=== PATIENT | female | born 1955 | race Caucasian/White ===

== ENCOUNTER → 2020-04-25 | Outpatient (CLI) | payer MEDICARE ==
[~2020-04-25] MED LIST: REGADENOSON 0.4 MG/5 ML SYRINGE ONE
== END | disposition home or self-care (01) ==
LOC: CFH 12:48
PROVIDERS: ATTEND Internal Medicine Cardiovascular Disease
DX: Z01.810 Encounter for preprocedural cardiovascular examination (principal); I10 Essential (primary) hypertension; I48.0 Paroxysmal atrial fibrillation
CPT/HCPCS: 78452; 93017; A9502; J2785

== ENCOUNTER → 2020-05-17 | Outpatient (CLI) | payer MEDICARE | END | disposition home or self-care (01) | LOC: CVU 15:30 | PROVIDERS: ATTEND Internal Medicine Cardiovascular Disease | DX: Z01.810 Encounter for preprocedural cardiovascular examination (principal); I08.8 Other rheumatic multiple valve diseases; I48.0 Paroxysmal atrial fibrillation; I11.9 Hypertensive heart disease without heart failure | CPT/HCPCS: 93306; 93356 ==

== ENCOUNTER → 2020-05-19 | Outpatient (CLI) | payer MEDICARE | END | disposition home or self-care (01) | LOC: CFH 08:40 | PROVIDERS: ATTEND Internal Medicine Gastroenterology | DX: M85.88 Other specified disorders of bone density and structure, other site (principal); K50.913 Crohn's disease, unspecified, with fistula | CPT/HCPCS: 77080 ==

== ENCOUNTER → 2020-06-01 | Outpatient (CLI) | payer MEDICARE ==
[~2020-06-01] MED LIST changes: +GADOTERATE 10 MMOL/20 ML SYR ONE; +GLUCAGON 1 MG ONE; -REGADENOSON 0.4 MG/5 ML SYRINGE ONE
== END | disposition home or self-care (01) ==
LOC: CFH 06:47
PROVIDERS: ATTEND Internal Medicine Gastroenterology
DX: K50.913 Crohn's disease, unspecified, with fistula (principal); M85.80 Other specified disorders of bone density and structure, unspecified site
CPT/HCPCS: 72197; 74183; A9575; J1610

== ENCOUNTER → 2020-06-14 | Outpatient (CLI) | payer MEDICARE ==
[~2020-06-14] MED LIST changes: +AZAT50TA9 PO; +DABI150C PO; -GADOTERATE 10 MMOL/20 ML SYR ONE; +GLIP10TA13 PO; -GLUCAGON 1 MG ONE; +HYDR-3341 PO; +INSU100V5 SQ-INSULIN; +METR500T PO; +OXYC-302 PO; +SIMV40TA20 PO; +SITA100T PO
== END | disposition home or self-care (01) ==
LOC: OUT 12:51
PROVIDERS: ATTEND Family Medicine
DX: Z20.828 Contact with and (suspected) exposure to other viral communicable diseases (principal)
CPT/HCPCS: 87635

== ENCOUNTER 2020-06-15 11:32 | Day surgery (SDC) | payer MEDICARE ==
[~2020-06-15] VITALS: Ht 160 cm; Wt 71.1 kg
[~2020-06-15 11:32] MED LIST changes: -AZAT50TA9 PO; +BUPIVACAINE/EPI 0.5% 1:200K ONE; -DABI150C PO; -GLIP10TA13 PO; -HYDR-3341 PO; -INSU100V5 SQ-INSULIN; -METR500T PO; -OXYC-302 PO; -SIMV40TA20 PO; -SITA100T PO
[2020-06-15] MEDS ORDERED: LACTATED RINGERS 1,000 ML IV SCH (12:00)
[2020-06-15] MEDS ORDERED: CHLORHEXIDINE 15 ML UDC MM ONE (12:00)
[2020-06-15 12:04] VITALS: BP 138/83
[2020-06-15 12:20] LABS: BASOPHILS % (AUTO) 1 % (0-1); EOSINOPHILS % (AUTO) 1 % (1-7); LYMPHOCYTES % (AUTO) 15 % (22-44); MEAN CORPUSCULAR HEMOGLOBIN 32.9 pg (27.0-34.8); MEAN CORPUSCULAR HGB CONC 34.3 g/dL (32.4-35.8); MEAN PLATELET VOLUME 8.1 fL (7.4-10.4); MONOCYTES % (AUTO) 8 % (2-9); NEUTROPHILS % (AUTO) 74 % (42-75); PLATELET COUNT 459 x10^3/uL (130-400); RED BLOOD COUNT 3.74 x10^6/uL (3.82-5.3); RED CELL DISTRIBUTION WIDTH 12.3 % (9.6-15.2)
[2020-06-15 12:24] LABS: MD NO
[2020-06-15] MEDS ORDERED: GLIP10TA13 PO (12:28)
[2020-06-15] MEDS ORDERED: AZAT50TA9 PO (12:28)
[2020-06-15 12:32] LABS: ALANINE AMINOTRANSFERASE 12 U/L (12-78); ALBUMIN 2.8 g/dL (3.4-5.0); ANION GAP 8 mmol/L (5-15); CALCIUM 9.4 mg/dL (8.5-10.1); CHLORIDE 109 mmol/L (98-107)
[2020-06-15] MEDS ORDERED: HYDR-3341 PO (12:32)
[2020-06-15] MEDS ORDERED: INSU100V5 SQ-INSULIN (12:32)
[2020-06-15] MEDS ORDERED: SIMV40TA20 PO (12:32)
[2020-06-15] MEDS ORDERED: DABI150C PO (12:32)
[2020-06-15] MEDS ORDERED: SITA100T PO (12:33)
[2020-06-15 12:34] LABS: ALKALINE PHOSPHATASE 89 U/L (45-117); BILIRUBIN,TOTAL 0.3 mg/dL (0.2-1.0); TOTAL PROTEIN 7.4 g/dL (6.4-8.2)
[2020-06-15] MEDS ORDERED: BUPIVACAINE LIPOSOME/PF 10ML INFIL ONE (13:07)
[2020-06-15] MEDS ORDERED: FENTANYL PF 250 MCG/5ML ONE (13:24)
[2020-06-15] MEDS ORDERED: MIDAZOLAM 1 MG/ML, 2ML ONE (13:24)
[2020-06-15] MEDS ORDERED: PROPOFOL 10 MG/ML, 20ML ONE (13:30)
[2020-06-15] MEDS ORDERED: ONDANSETRON 2MG/ML, 2ML ONE (13:33)
[2020-06-15] MEDS ORDERED: CEFOTETAN 2 GM ONE (13:33)
[2020-06-15] MEDS ORDERED: OXYC1TAB14 PO (13:59)
[2020-06-15] MEDS ORDERED: METR500T PO (13:59)
[2020-06-15] MEDS ORDERED: FENTANYL PF 100 MCG/2ML ONE (14:16)
[2020-06-15] MEDS ORDERED: OXYcodone 5 MG/5 ML ORAL.SOL UDC ONE (14:16)
[2020-06-15] MEDS: FENTANYL PF 100 MCG/2ML IV PRN ×3 (14:17→14:32)
[2020-06-15] MEDS ORDERED: LABETALOL 5MG/ML, 20ML IV PRN (14:30)
[2020-06-15] MEDS ORDERED: PROMETHAZINE 25 MG/ML, 1ML IVPush PRN (14:30)
[2020-06-15] MEDS ORDERED: ONDANSETRON 2MG/ML, 2ML IVPush PRN (14:30)
[2020-06-15] MEDS ORDERED: ALBUTEROL SULFATE 2.5 MG/3 ML NPPB PRN (14:30)
[2020-06-15] MEDS ORDERED: MIDAZOLAM 1 MG/ML, 2ML IV PRN (14:30)
[2020-06-15] MEDS ORDERED: OXYcodone 5 MG/5 ML ORAL.SOL UDC PO PRN (14:30)
[2020-06-15] MEDS ORDERED: PROMETHAZINE 12.5 MG SUPP PR PRN (14:30)
[2020-06-15] MEDS ORDERED: DIPHENHYDRAMINE 50 MG/ML, 1ML IVPush PRN (14:30)
[2020-06-15] MEDS ORDERED: DIAZEPAM 5 MG/ML, 2ML IVPush PRN (14:30)
[2020-06-15] MEDS ORDERED: hydrALAzine 20 MG/ML, 1ML IV PRN (14:30)
[2020-06-15] MEDS ORDERED: EPHEDRINE 50 MG/ML, 1ML IVPush PRN (14:30)
[2020-06-15] MEDS ORDERED: MEPERIDINE/PF 25MG/0.5ML IVPush PRN (14:30)
[2020-06-15] MEDS ORDERED: HYDROmorphone 1 MG/ML, 1ML INJ ONE (14:40)
[2020-06-15] MEDS: HYDROmorphone 1 MG/ML, 1ML INJ IVPush PRN ×2 (14:42→14:50)
== END 2020-06-15 16:20 | disposition home or self-care (01) ==
LOC: OUT 11:32
PROVIDERS: ATTEND Surgery
DX: K60.3 Anal fistula (principal); K50.90 Crohn's disease, unspecified, without complications; I10 Essential (primary) hypertension; E78.5 Hyperlipidemia, unspecified; I48.91 Unspecified atrial fibrillation; E11.9 Type 2 diabetes mellitus without complications; Z79.899 Other long term (current) drug therapy; Z88.1 Allergy status to other antibiotic agents; Z79.4 Long term (current) use of insulin; Z87.891 Personal history of nicotine dependence; Z90.710 Acquired absence of both cervix and uterus; Z98.890 Other specified postprocedural states
CPT/HCPCS: 36415; 46020; 80053; 85025; 93005; J1170; J2250; J2405; J2704; J3010; J7120